=== PATIENT | male | born 1950 | race Caucasian/White ===

== ENCOUNTER → 2020-02-15 14:27 | Outpatient (BNVA) | payer OTHER, SELFPAY | PROVIDERS: Family Provider Family Medicine; PCP Nurse Practitioner; Visit Provider Dermatology | DX: I48.0 Paroxysmal atrial fibrillation (principal) | CPT/HCPCS: 85610 ==

== ENCOUNTER → 2020-02-22 13:52 | Outpatient (BNVA) | payer OTHER, SELFPAY | PROVIDERS: Family Provider Family Medicine; PCP Nurse Practitioner; Visit Provider Dermatology | DX: D69.9 Hemorrhagic condition, unspecified (principal) | CPT/HCPCS: 85610 ==

== ENCOUNTER → 2020-02-29 10:41 | Outpatient (BNVA) | payer OTHER, SELFPAY | PROVIDERS: Family Provider Family Medicine; PCP Nurse Practitioner | DX: D69.9 Hemorrhagic condition, unspecified (principal) | CPT/HCPCS: 85610 ==

== ENCOUNTER → 2020-03-14 14:03 | Outpatient (BNVA) | payer OTHER, SELFPAY | PROVIDERS: Family Provider Family Medicine; PCP Nurse Practitioner | DX: D69.9 Hemorrhagic condition, unspecified (principal) | CPT/HCPCS: 85610 ==

== ENCOUNTER → 2020-04-26 09:34 | Outpatient (BNVA) | payer OTHER, SELFPAY | PROVIDERS: Family Provider Family Medicine; PCP Nurse Practitioner | DX: Z79.01 Long term (current) use of anticoagulants (principal) | CPT/HCPCS: 85610 ==

== ENCOUNTER → 2020-05-11 15:08 | Outpatient (BNVA) | payer OTHER, SELFPAY | PROVIDERS: Family Provider Family Medicine; PCP Nurse Practitioner; Visit Provider Dermatology | DX: Z79.01 Long term (current) use of anticoagulants (principal) | CPT/HCPCS: 85610 ==

== ENCOUNTER 2022-01-23 06:00 | Outpatient (RCR) | payer OTHER, SELFPAY | END 2022-02-14 23:59 | disposition home or self-care (01) | LOC: GPT 06:00 | PROVIDERS: Family Provider Family Medicine; PCP Nurse Practitioner; Referring Provider Nurse Practitioner; Visit Provider Nurse Practitioner | DX: R26.9 Unspecified abnormalities of gait and mobility (principal) | CPT/HCPCS: 97110; 97162 ==

== ENCOUNTER 2022-02-15 06:00 | Outpatient (RCR) | payer OTHER, SELFPAY | END 2022-03-16 23:59 | disposition home or self-care (01) | LOC: GPT 06:00 | PROVIDERS: PCP Nurse Practitioner; Referring Provider Nurse Practitioner; Visit Provider Nurse Practitioner | DX: R26.9 Unspecified abnormalities of gait and mobility (principal) | CPT/HCPCS: 97110; 97112 ==

== ENCOUNTER 2022-03-17 | Outpatient (RCR) | payer OTHER, SELFPAY | END 2022-04-16 23:59 | disposition home or self-care (01) | LOC: GPT | PROVIDERS: PCP Nurse Practitioner; Referring Provider Nurse Practitioner; Visit Provider Nurse Practitioner | DX: R26.9 Unspecified abnormalities of gait and mobility (principal) | CPT/HCPCS: 97110 ==

== ENCOUNTER 2022-07-05 06:00 | Outpatient (RCR) | payer OTHER, SELFPAY | END 2022-07-17 23:59 | disposition home or self-care (01) | LOC: GPT 06:00 | PROVIDERS: PCP Nurse Practitioner; Visit Provider Nurse Practitioner | DX: G62.82 Radiation-induced polyneuropathy (principal) | CPT/HCPCS: 97110; 97112; 97163; 97530 ==

== ENCOUNTER 2022-07-18 06:00 | Outpatient (RCR) | payer OTHER, SELFPAY | END 2022-08-16 23:59 | disposition home or self-care (01) | LOC: GPT 06:00 | PROVIDERS: PCP Nurse Practitioner; Visit Provider Nurse Practitioner | DX: G62.82 Radiation-induced polyneuropathy (principal) | CPT/HCPCS: 97110; 97530; 97535 ==

== ENCOUNTER 2022-08-17 06:00 | Outpatient (RCR) | payer OTHER, SELFPAY | END 2022-09-16 23:59 | disposition home or self-care (01) | LOC: GPT 06:00 | PROVIDERS: PCP Nurse Practitioner; Visit Provider Nurse Practitioner | DX: G62.82 Radiation-induced polyneuropathy (principal) | CPT/HCPCS: 97110; 97112; 97164; 97530 ==

== ENCOUNTER 2022-09-17 06:00 | Outpatient (RCR) | payer OTHER, SELFPAY | END 2022-10-16 23:59 | disposition home or self-care (01) | LOC: GPT 06:00 | PROVIDERS: PCP Nurse Practitioner; Visit Provider Nurse Practitioner | DX: G62.82 Radiation-induced polyneuropathy (principal) | CPT/HCPCS: 97110; 97112; 97164; 97530 ==

== ENCOUNTER 2022-10-17 06:00 | Outpatient (RCR) | payer OTHER, SELFPAY | END 2022-11-16 23:59 | disposition home or self-care (01) | LOC: GPT 06:00 | PROVIDERS: PCP Nurse Practitioner; Visit Provider Nurse Practitioner | DX: G62.82 Radiation-induced polyneuropathy (principal) | CPT/HCPCS: 97110; 97164; 97530 ==

== ENCOUNTER 2022-11-17 06:00 | Outpatient (RCR) | payer OTHER, SELFPAY | END 2022-12-17 23:59 | disposition home or self-care (01) | LOC: GPT 06:00 | PROVIDERS: PCP Nurse Practitioner; Visit Provider Nurse Practitioner | DX: G62.82 Radiation-induced polyneuropathy (principal) | CPT/HCPCS: 97110; 97112; 97164; 97530 ==

== ENCOUNTER 2022-12-18 06:00 | Outpatient (RCR) | payer OTHER, SELFPAY | END 2023-01-14 23:59 | disposition home or self-care (01) | LOC: GPT 06:00 | PROVIDERS: PCP Nurse Practitioner; Visit Provider Nurse Practitioner | DX: G62.82 Radiation-induced polyneuropathy (principal) | CPT/HCPCS: 97110; 97112; 97530 ==

== ENCOUNTER 2024-03-16 12:57 | Outpatient (CLI) | payer OTHER, SELFPAY ==
--- NOTE | 2024-03-16 13:02 | CT_ITS ---
WS: [id number] CT chest w con* [id number] HISTORY: HX OF LUNG CANCER CURRENT ANEMIA W/UNRESOLVING PNEUM TECHNIQUE: Axial imaging performed through the thorax. Coronal and sagittal reformats are submitted. All CT scans at [facility] use at least one of these dose optimization techniques: automated exposure control; mA and/or kV adjustment per patient size (includes targeted exams where dose is mat ched to clinical indication); or iterative reconstruction. CONTRAST: Omnipaque 350; 100 mL IV. DLP: 584.47 mGy.cm COMPARISON: PET/CT 05/30/2023 Lungs and central airway: Hyperinflated lungs with emphysema. Multifocal areas of abnormality through out the lungs. History of prior lung cancer. The area of curvilinear opacification in the medial RIGH T upper lobe extending across the fissure into the medial RIGHT lower lobe has increased in size and density. More masslike configuration abutting the RIGHT paratracheal region measures 2.8 cm. The incr eased soft tissue extends inferiorly. Consolidation extending along the medial RIGHT lower lobe measu res 6.0 x 3.4 cm. There is an additional irregular consolidation in the central RIGHT middle lobe leslie suring 3.4 x 5.7 cm which is new. Additional linear consolidation LEFT upper lobe measures 4.6 x 1.6 cm abutting the fissure. This is probably atelectasis. There is additional tree-in-bud airspace disease bilaterally. Additional numerous nodules which are v mack small throughout both lungs suspicious for metastatic disease. Pleura: Normal. No pleural effusion. Heart and pericardium: Normal size heart with no pericardial effusion. Mediastinum and gali: The RIGHT middle lobe pulmonary opacification extends to the hilum. There is a small subcarinal lymph node. Vessels: Mild atherosclerosis aorta. No aneurysm. Normal size pulmonary artery. Chest wall and lower neck: No soft tissue masses. Upper abdomen: No adrenal mass. Prominent diaphragmatic slip. No masses within the liver. LEFT renal cyst. Osseous structures: Numerous osteoblastic lesions are noted throughout the visualized cervical, thora cic and upper lumbar spine, sternum and ribs. Numerous foci in the bones of the shoulder. CT/CT chest w con* [id number] IMPRESSION: 1. Significant interval change in appearance of the lungs since the most recen t examination of 05/30/2023. 2. Increasing masslike areas of consolidation in the RIGHT middle lobe and the RIGHT upper lobe crossing the fissure to the medial RIGHT lower lobe. Recurren t lung cancer needs to be excluded. These changes may be related to pneumonia o r continued progressive chronic atelectasis. 3. Additional numerous very small bilateral pulmonary nodules suspicious for m etastatic disease. 4. Additional tree-in-bud airspace disease. 5. Numerous sclerotic osseous lesions consistent with bone metastasis. 6. Patient would benefit from PET/CT imaging and follow-up with oncology.
[2024-03-16] MEDS: iohexol 350 mg/mL 500 mL Btl (per mL) IV (13:27)
== END 2024-03-16 12:58 | disposition home or self-care (01) ==
LOC: RAD 12:57
PROVIDERS: PCP Nurse Practitioner; Visit Provider Nurse Practitioner
DX: J18.9 Pneumonia, unspecified organism (principal); D64.9 Anemia, unspecified; Z85.118 Personal history of other malignant neoplasm of bronchus and lung; R91.8 Other nonspecific abnormal finding of lung field
CPT/HCPCS: 71260; Q9967